=== PATIENT | female | born 1945 | race Caucasian/White ===

== ENCOUNTER 2022-10-27 03:44 | Observation (INO) | payer OTHER ==
[~2022-10-27] VITALS: Ht 162.6 cm; Wt 33.0 kg
[2022-10-27] MEDS ORDERED: MORPHINE 2 MG/ML 1ML VIAL IV PRN ×2 (06:35→13:20)
[2022-10-27 07:13] LABS: BASO # 0.1 10^3/uL (0.0-0.2); BASO % 0.6 % (0.0-1.0); EOS % 0.1 % (0.0-3.0); HEMATOCRIT 36.8 % (36.0-47.0); HEMOGLOBIN 11.8 g/dl (12.0-15.5); LYMPH # 1.1 10^3/uL (1.5-5.0); LYMPH % 11.4 % (24.0-44.0); MEAN CORPUSCULAR HGB CONC 32.1 g/dl (32.0-36.5); MEAN CORPUSCULAR VOLUME 93.6 fl (80.0-96.0); MONO # 1.2 10^3/uL (0.0-0.8); MONO % 12.1 % (2.0-8.0); NEUTROPHILS # 7.3 10^3/uL (1.5-8.5); NEUTROPHILS % 75.5 % (36.0-66.0); PLATELET COUNT, AUTOMATED 200 10^3/uL (150-450); RED BLOOD COUNT 3.93 10^6/uL (4.00-5.40); WHITE BLOOD COUNT 9.7 10^3/uL (4.0-10.0)
[2022-10-27 07:17] LABS: ALBUMIN 3.7 G/DL (3.2-5.2); ALKALINE PHOSPHATASE 104 U/L (46-116); ALT/SGPT 35 U/L (7.0-40); AST/SGOT 55 U/L (<34); BILIRUBIN,DIRECT 0.3 MG/DL (<0.4); BILIRUBIN,TOTAL 1.4 MG/DL (0.3-1.2); BLOOD UREA NITROGEN 17 MG/DL (9-23); CALCIUM LEVEL 9.8 MG/DL (8.3-10.6); CARBON DIOXIDE LEVEL 29 MMOL/L (20-31); CHLORIDE LEVEL 99 MMOL/L (98-107); CREATININE FOR GFR 0.65 MG/DL (0.55-1.30); GLOMERULAR FILTRATION RATE > 60.0 (>39); GLUCOSE, FASTING 105 MG/DL (74-106); SODIUM LEVEL 136 MMOL/L (136-145); TOTAL PROTEIN 6.6 G/DL (5.7-8.2)
[2022-10-27 07:41] LABS: RSV AMPLIFICATION NEGATIVE (NEGATIVE)
[2022-10-27] MEDS: TIOTROPIUM INHALER/CAPSULE (SPIRIVA) INH SCH (08:00)
[2022-10-27] MEDS: DICLOFENAC EPOLAMINE 1.3% PATCH TOP SCH ×2 (09:00→20:17)
[2022-10-27] MEDS: CALCIUM/VITAMIN D 500 MG TAB PO SCH ×2 (09:00→20:16)
[2022-10-27] MEDS: DOCUSATE SODIUM 100MG CAPSULE PO SCH ×2 (09:00→20:16)
[2022-10-27] MEDS: GABAPENTIN 100 MG CAP PO SCH ×2 (09:00→20:16)
[2022-10-27] MEDS ORDERED: VENTAER INH (10:26)
[2022-10-27] MEDS ORDERED: GABA-1171 PO (10:26)
[2022-10-27] MEDS ORDERED: IPRA0.00 NEB (10:26)
[2022-10-27] MEDS ORDERED: BUDE0.5S6 NEB (10:26)
[2022-10-27] MEDS ORDERED: VITA100093 PO (10:26)
[2022-10-27] MEDS ORDERED: SYMB16INH INH (10:26)
[2022-10-27] MEDS ORDERED: CALC600T60 PO (10:26)
[2022-10-27] MEDS ORDERED: ASPI81TA26 PO (10:26)
[2022-10-27] MEDS ORDERED: SIMV10TA21 PO (10:26)
[2022-10-27] MEDS ORDERED: SPIR1CAP INH (10:26)
[2022-10-27] MEDS ORDERED: THERTAB21 PO (10:26)
[2022-10-27] MEDS ORDERED: PROL60SO INJ (10:26)
[2022-10-27] MEDS ORDERED: HOME MED LIST COMPLETE! XX SCH (10:35)
[2022-10-27] MEDS ORDERED: ACETAMINOPHEN TAB 650MG DOSE (2X325MG) PO PRN (12:50)
[2022-10-27] MEDS ORDERED: MOM 30ML SUSPENSION UDC PO PRN (12:50)
[2022-10-27] MEDS ORDERED: IPRATROPIUM 0.5MG/ALBUTEROL 2.5MG INH SOL UD 3ML (DUONEB) NEB PRN (13:15)
[2022-10-27] MEDS ORDERED: ALBUTEROL 90 MCG/ACT 8GM HFA INHALER INH PRN (13:15)
[2022-10-27] MEDS ORDERED: oxyCODONE 5MG TAB PO PRN (13:20)
[2022-10-27 14:51] LABS: ERYTHROCYTE SEDIMENTATION RATE 20 mm/hr (0-30)
[2022-10-27 15:15] VITALS: BP 160/89
[2022-10-27 15:19] LABS: IRON (FE) < 5 UG/DL (50-170); TOTAL IRON BINDING CAPACITY 245 UG/DL (250-425)
[2022-10-27 15:23] LABS: FERRITIN 408.8 NG/ML (7.3-270.7)
[2022-10-27 15:42] LABS: FOLATE > 24.0 NG/ML (>5.4); VITAMIN B12 LEVEL 747 PG/ML (211-911)
[2022-10-27] MEDS: ASPIRIN 81MG ENTERIC TABLET PO SCH (15:42)
[2022-10-27] MEDS: MULTIVITAMINS/MINERALS THERAP 1 TAB PO SCH (15:42)
[2022-10-27] MEDS: SIMVASTATIN 10 MG TAB PO SCH (15:42)
[2022-10-27] MEDS: ACETAMINOPHEN 325 MG TAB PO PRN (15:42)
[2022-10-27] MEDS: LIDOCAINE 5% (LIDODERM) PATCH TD SCH (15:43)
[2022-10-27] MEDS ORDERED: FERRIC CARBOXYMALTOSE INJ 750 MG, VIAL MATE ADAPTER 1 EACH in NS 250 ML IV ONE (20:00)
[2022-10-27] MEDS ORDERED: BUDESONIDE 0.5 MG/2 ML INHALATION SUSPENSION NEB SCH (20:00)
[2022-10-27] MEDS: HEPARIN SOD (PORCINE) 5000UNITS/ML 1ML VIAL/SYRINGE SQ SCH (20:16)
[2022-10-27] MEDS: SYMBICORT 160/4.5MCG INHALER 6GM INH SCH (20:38)
[2022-10-27] MEDS ORDERED: DOCUSATE SODIUM 100MG CAPSULE PO SCH (21:00)
[2022-10-27 21:32] VITALS: BP 107/66
[2022-10-28 05:44] VITALS: BP 148/74
[2022-10-28 06:58] LABS: HEMATOCRIT 30.9 % (36.0-47.0); MEAN CORPUSCULAR HEMOGLOBIN 30.1 pg (27.0-33.0); MEAN CORPUSCULAR HGB CONC 32.4 g/dl (32.0-36.5); MEAN CORPUSCULAR VOLUME 93.1 fl (80.0-96.0); PLATELET COUNT, AUTOMATED 182 10^3/uL (150-450); RED BLOOD COUNT 3.32 10^6/uL (4.00-5.40); WHITE BLOOD COUNT 6.5 10^3/uL (4.0-10.0)
[2022-10-28 07:25] LABS: BLOOD UREA NITROGEN 22 MG/DL (9-23); CALCIUM LEVEL 9.8 MG/DL (8.3-10.6); CARBON DIOXIDE LEVEL 33 MMOL/L (20-31); CHLORIDE LEVEL 100 MMOL/L (98-107); CREATININE FOR GFR 0.58 MG/DL (0.55-1.30); GLOMERULAR FILTRATION RATE > 60.0 (>39); GLUCOSE, FASTING 85 MG/DL (74-106); POTASSIUM SERUM 3.7 MMOL/L (3.5-5.1); SODIUM LEVEL 138 MMOL/L (136-145)
[2022-10-28] MEDS: SYMBICORT 160/4.5MCG INHALER 6GM INH SCH ×2 (07:55→21:17)
[2022-10-28] MEDS: TIOTROPIUM INHALER/CAPSULE (SPIRIVA) INH SCH (07:55)
[2022-10-28] MEDS ORDERED: ENOXAPARIN 30MG/0.3ML SYRINGE (J1650 PER 10MG) SC SCH (09:00)
[2022-10-28] MEDS: DOCUSATE SODIUM 100MG CAPSULE PO SCH ×2 (09:00→20:27)
[2022-10-28] MEDS: HEPARIN SOD (PORCINE) 5000UNITS/ML 1ML VIAL/SYRINGE SQ SCH ×2 (10:03→21:05)
[2022-10-28] MEDS: ACETAMINOPHEN 325 MG TAB PO PRN (10:03)
[2022-10-28] MEDS: MULTIVITAMINS/MINERALS THERAP 1 TAB PO SCH (10:03)
[2022-10-28] MEDS: GABAPENTIN 100 MG CAP PO SCH ×2 (10:04→21:05)
[2022-10-28] MEDS: SIMVASTATIN 10 MG TAB PO SCH (10:04)
[2022-10-28] MEDS: ASPIRIN 81MG ENTERIC TABLET PO SCH (10:04)
[2022-10-28] MEDS: DICLOFENAC EPOLAMINE 1.3% PATCH TOP SCH ×2 (10:04→21:05)
[2022-10-28] MEDS: CALCIUM/VITAMIN D 500 MG TAB PO SCH ×2 (10:04→21:05)
[2022-10-28] MEDS: LIDOCAINE 5% (LIDODERM) PATCH TD SCH (10:05)
[2022-10-28 14:00] VITALS: BP 136/69
[2022-10-28 21:03] VITALS: BP 130/67
[2022-10-29 05:02] VITALS: BP 136/71
[2022-10-29 06:55] LABS: HEMATOCRIT 29.5 % (36.0-47.0); HEMOGLOBIN 9.7 g/dl (12.0-15.5); MEAN CORPUSCULAR HEMOGLOBIN 30.4 pg (27.0-33.0); MEAN CORPUSCULAR HGB CONC 32.9 g/dl (32.0-36.5); MEAN CORPUSCULAR VOLUME 92.5 fl (80.0-96.0); PLATELET COUNT, AUTOMATED 205 10^3/uL (150-450); RED BLOOD COUNT 3.19 10^6/uL (4.00-5.40); WHITE BLOOD COUNT 6.8 10^3/uL (4.0-10.0)
[2022-10-29 07:20] LABS: BLOOD UREA NITROGEN 20 MG/DL (9-23); CALCIUM LEVEL 10.1 MG/DL (8.3-10.6); CARBON DIOXIDE LEVEL 34 MMOL/L (20-31); CHLORIDE LEVEL 102 MMOL/L (98-107); CREATININE FOR GFR 0.53 MG/DL (0.55-1.30); GLOMERULAR FILTRATION RATE > 60.0 (>39); GLUCOSE, FASTING 86 MG/DL (74-106); POTASSIUM SERUM 3.5 MMOL/L (3.5-5.1); SODIUM LEVEL 141 MMOL/L (136-145)
[2022-10-29] MEDS: SYMBICORT 160/4.5MCG INHALER 6GM INH SCH ×2 (07:52→20:45)
[2022-10-29] MEDS: TIOTROPIUM INHALER/CAPSULE (SPIRIVA) INH SCH (07:52)
[2022-10-29] MEDS: DOCUSATE SODIUM 100MG CAPSULE PO SCH ×4 (09:00→19:55)
[2022-10-29] MEDS: DICLOFENAC EPOLAMINE 1.3% PATCH TOP SCH ×3 (09:00→19:51)
[2022-10-29] MEDS: HEPARIN SOD (PORCINE) 5000UNITS/ML 1ML VIAL/SYRINGE SQ SCH ×2 (10:00→19:50)
[2022-10-29] MEDS: LIDOCAINE 5% (LIDODERM) PATCH TD SCH (10:01)
[2022-10-29] MEDS: GABAPENTIN 100 MG CAP PO SCH ×2 (10:01→19:50)
[2022-10-29] MEDS: ASPIRIN 81MG ENTERIC TABLET PO SCH (10:02)
[2022-10-29] MEDS: MULTIVITAMINS/MINERALS THERAP 1 TAB PO SCH (10:02)
[2022-10-29] MEDS: CALCIUM/VITAMIN D 500 MG TAB PO SCH ×2 (10:02→19:50)
[2022-10-29] MEDS: SIMVASTATIN 10 MG TAB PO SCH (10:02)
[2022-10-29] MEDS: ACETAMINOPHEN 325 MG TAB PO PRN (15:18)
[2022-10-30 05:20] VITALS: BP 124/57
[2022-10-30 06:47] LABS: HEMATOCRIT 29.3 % (36.0-47.0); HEMOGLOBIN 9.5 g/dl (12.0-15.5); MEAN CORPUSCULAR HEMOGLOBIN 30.4 pg (27.0-33.0); MEAN CORPUSCULAR HGB CONC 32.4 g/dl (32.0-36.5); MEAN CORPUSCULAR VOLUME 93.6 fl (80.0-96.0); PLATELET COUNT, AUTOMATED 203 10^3/uL (150-450); RED BLOOD COUNT 3.13 10^6/uL (4.00-5.40); WHITE BLOOD COUNT 4.5 10^3/uL (4.0-10.0)
[2022-10-30 07:20] LABS: BLOOD UREA NITROGEN 20 MG/DL (9-23); CALCIUM LEVEL 10.6 MG/DL (8.3-10.6); CARBON DIOXIDE LEVEL 36 MMOL/L (20-31); CHLORIDE LEVEL 104 MMOL/L (98-107); CREATININE FOR GFR 0.58 MG/DL (0.55-1.30); GLOMERULAR FILTRATION RATE > 60.0 (>39); GLUCOSE, FASTING 84 MG/DL (74-106); POTASSIUM SERUM 3.4 MMOL/L (3.5-5.1); SODIUM LEVEL 141 MMOL/L (136-145)
[2022-10-30] MEDS: TIOTROPIUM INHALER/CAPSULE (SPIRIVA) INH SCH (07:21)
[2022-10-30] MEDS: SYMBICORT 160/4.5MCG INHALER 6GM INH SCH ×2 (07:21→20:47)
[2022-10-30] MEDS: CALCIUM/VITAMIN D 500 MG TAB PO SCH ×2 (09:35→20:14)
[2022-10-30] MEDS: GABAPENTIN 100 MG CAP PO SCH ×2 (09:35→20:14)
[2022-10-30] MEDS: ASPIRIN 81MG ENTERIC TABLET PO SCH (09:35)
[2022-10-30] MEDS: SIMVASTATIN 10 MG TAB PO SCH (09:35)
[2022-10-30] MEDS: MULTIVITAMINS/MINERALS THERAP 1 TAB PO SCH (09:35)
[2022-10-30] MEDS: DOCUSATE SODIUM 100MG CAPSULE PO SCH ×2 (09:35→20:14)
[2022-10-30] MEDS: DICLOFENAC EPOLAMINE 1.3% PATCH TOP SCH ×2 (09:36→20:16)
[2022-10-30] MEDS: HEPARIN SOD (PORCINE) 5000UNITS/ML 1ML VIAL/SYRINGE SQ SCH ×2 (09:36→20:16)
[2022-10-30] MEDS: LIDOCAINE 5% (LIDODERM) PATCH TD SCH (09:36)
[2022-10-30] MEDS: ACETAMINOPHEN 325 MG TAB PO PRN (12:29)
[2022-10-30] MEDS: METAMUCIL (PSYLLIUM) PACKET PO SCH (17:13)
[2022-10-30] MEDS: MIRALAX *UNIT DOSE* 17GM PACKET PO SCH (17:13)
[2022-10-31] MEDS: ACETAMINOPHEN 325 MG TAB PO PRN (05:58)
[2022-10-31 06:00] VITALS: BP 134/91
[2022-10-31] MEDS: SODIUM CHLORIDE NASAL 0.65% SPRAY BTL (OCEAN) PRN (06:00)
[2022-10-31 06:48] LABS: HEMATOCRIT 29.4 % (36.0-47.0); HEMOGLOBIN 9.5 g/dl (12.0-15.5); MEAN CORPUSCULAR HEMOGLOBIN 30.5 pg (27.0-33.0); MEAN CORPUSCULAR HGB CONC 32.3 g/dl (32.0-36.5); MEAN CORPUSCULAR VOLUME 94.5 fl (80.0-96.0); PLATELET COUNT, AUTOMATED 213 10^3/uL (150-450); RED BLOOD COUNT 3.11 10^6/uL (4.00-5.40)
[2022-10-31 07:11] LABS: BLOOD UREA NITROGEN 15 MG/DL (9-23); CALCIUM LEVEL 10.4 MG/DL (8.3-10.6); CARBON DIOXIDE LEVEL 37 MMOL/L (20-31); CHLORIDE LEVEL 101 MMOL/L (98-107); CREATININE FOR GFR 0.58 MG/DL (0.55-1.30); GLOMERULAR FILTRATION RATE > 60.0 (>39); GLUCOSE, FASTING 83 MG/DL (74-106); POTASSIUM SERUM 3.4 MMOL/L (3.5-5.1); SODIUM LEVEL 140 MMOL/L (136-145)
[2022-10-31] MEDS: TIOTROPIUM INHALER/CAPSULE (SPIRIVA) INH SCH (07:21)
[2022-10-31] MEDS: SYMBICORT 160/4.5MCG INHALER 6GM INH SCH ×2 (07:21→20:34)
[2022-10-31] MEDS: CALCIUM/VITAMIN D 500 MG TAB PO SCH ×2 (09:16→20:58)
[2022-10-31] MEDS: DOCUSATE SODIUM 100MG CAPSULE PO SCH ×2 (09:16→20:58)
[2022-10-31] MEDS: POTASSIUM CHLORIDE 10MEQ SR TABLET PO SCH ×2 (09:17→20:58)
[2022-10-31] MEDS: SIMVASTATIN 10 MG TAB PO SCH (09:17)
[2022-10-31] MEDS: ASPIRIN 81MG ENTERIC TABLET PO SCH (09:17)
[2022-10-31] MEDS: GABAPENTIN 100 MG CAP PO SCH ×2 (09:17→20:58)
[2022-10-31] MEDS: MIRALAX *UNIT DOSE* 17GM PACKET PO SCH (09:17)
[2022-10-31] MEDS: MULTIVITAMINS/MINERALS THERAP 1 TAB PO SCH (09:17)
[2022-10-31] MEDS: METAMUCIL (PSYLLIUM) PACKET PO SCH (09:17)
[2022-10-31] MEDS: LIDOCAINE 5% (LIDODERM) PATCH TD SCH (09:18)
[2022-10-31] MEDS: HEPARIN SOD (PORCINE) 5000UNITS/ML 1ML VIAL/SYRINGE SQ SCH ×2 (09:18→20:59)
[2022-10-31] MEDS: DICLOFENAC EPOLAMINE 1.3% PATCH TOP SCH ×2 (09:18→20:59)
[2022-10-31 15:40] VITALS: BP 159/84
[2022-10-31] MEDS ORDERED: SALIVA SUBSTITUTE(MOUTHKOTE) BTL MT PRN (16:45)
[2022-10-31 21:10] VITALS: BP 161/85
[2022-10-31] MEDS: ALBUTEROL 90 MCG/ACT 8GM HFA INHALER INH PRN (23:53)
[2022-11-01 06:09] VITALS: BP 122/49
[2022-11-01] MEDS: TIOTROPIUM INHALER/CAPSULE (SPIRIVA) INH SCH (08:15)
[2022-11-01] MEDS: SYMBICORT 160/4.5MCG INHALER 6GM INH SCH ×2 (08:15→21:24)
[2022-11-01] MEDS: METAMUCIL (PSYLLIUM) PACKET PO SCH (09:37)
[2022-11-01] MEDS: MIRALAX *UNIT DOSE* 17GM PACKET PO SCH (09:37)
[2022-11-01] MEDS: ASPIRIN 81MG ENTERIC TABLET PO SCH (09:38)
[2022-11-01] MEDS: CALCIUM/VITAMIN D 500 MG TAB PO SCH ×2 (09:38→21:11)
[2022-11-01] MEDS: HEPARIN SOD (PORCINE) 5000UNITS/ML 1ML VIAL/SYRINGE SQ SCH ×2 (09:38→21:12)
[2022-11-01] MEDS: DOCUSATE SODIUM 100MG CAPSULE PO SCH ×2 (09:38→21:11)
[2022-11-01] MEDS: SIMVASTATIN 10 MG TAB PO SCH (09:38)
[2022-11-01] MEDS: GABAPENTIN 100 MG CAP PO SCH ×2 (09:38→21:11)
[2022-11-01] MEDS: MULTIVITAMINS/MINERALS THERAP 1 TAB PO SCH (09:38)
[2022-11-01] MEDS: SODIUM CHLORIDE NASAL 0.65% SPRAY BTL (OCEAN) PRN (09:38)
[2022-11-01] MEDS: LIDOCAINE 5% (LIDODERM) PATCH TD SCH (09:39)
[2022-11-01] MEDS: DICLOFENAC EPOLAMINE 1.3% PATCH TOP SCH ×2 (09:39→21:00)
[2022-11-01] MEDS: ALBUTEROL 90 MCG/ACT 8GM HFA INHALER INH PRN (21:22)
[2022-11-02 02:11] VITALS: BP 158/72
[2022-11-02] MEDS: ACETAMINOPHEN 325 MG TAB PO PRN (04:14)
[2022-11-02] MEDS: SYMBICORT 160/4.5MCG INHALER 6GM INH SCH ×2 (08:12→21:38)
[2022-11-02] MEDS: TIOTROPIUM INHALER/CAPSULE (SPIRIVA) INH SCH (08:12)
[2022-11-02] MEDS: GABAPENTIN 100 MG CAP PO SCH ×2 (08:41→20:36)
[2022-11-02] MEDS: LIDOCAINE 5% (LIDODERM) PATCH TD SCH (08:42)
[2022-11-02] MEDS: DICLOFENAC EPOLAMINE 1.3% PATCH TOP SCH ×2 (08:42→20:37)
[2022-11-02] MEDS: MULTIVITAMINS/MINERALS THERAP 1 TAB PO SCH (08:42)
[2022-11-02] MEDS: ASPIRIN 81MG ENTERIC TABLET PO SCH (08:42)
[2022-11-02] MEDS: METAMUCIL (PSYLLIUM) PACKET PO SCH (08:42)
[2022-11-02] MEDS: SIMVASTATIN 10 MG TAB PO SCH (08:43)
[2022-11-02] MEDS: DOCUSATE SODIUM 100MG CAPSULE PO SCH ×2 (08:43→20:36)
[2022-11-02] MEDS: HEPARIN SOD (PORCINE) 5000UNITS/ML 1ML VIAL/SYRINGE SQ SCH ×2 (08:43→20:35)
[2022-11-02] MEDS: CALCIUM/VITAMIN D 500 MG TAB PO SCH ×2 (08:43→20:35)
[2022-11-02] MEDS: MIRALAX *UNIT DOSE* 17GM PACKET PO SCH (08:44)
[2022-11-02] MEDS: IBUPROFEN 600MG TAB PO PRN ×2 (08:45→20:36)
[2022-11-02] MEDS ORDERED: PREPARATION H OINTMENT (HEMORRHOID) PR PRN (09:05)
[2022-11-03 07:08] VITALS: BP 125/59
[2022-11-03] MEDS: TIOTROPIUM INHALER/CAPSULE (SPIRIVA) INH SCH (07:57)
[2022-11-03] MEDS: SYMBICORT 160/4.5MCG INHALER 6GM INH SCH ×2 (07:58→20:45)
[2022-11-03] MEDS: MIRALAX *UNIT DOSE* 17GM PACKET PO SCH (09:00)
[2022-11-03] MEDS: METAMUCIL (PSYLLIUM) PACKET PO SCH (09:00)
[2022-11-03] MEDS: HEPARIN SOD (PORCINE) 5000UNITS/ML 1ML VIAL/SYRINGE SQ SCH ×2 (09:24→20:22)
[2022-11-03] MEDS: DICLOFENAC EPOLAMINE 1.3% PATCH TOP SCH ×2 (09:24→20:23)
[2022-11-03] MEDS: CALCIUM/VITAMIN D 500 MG TAB PO SCH ×2 (09:25→20:23)
[2022-11-03] MEDS: GABAPENTIN 100 MG CAP PO SCH ×2 (09:25→20:22)
[2022-11-03] MEDS: LIDOCAINE 5% (LIDODERM) PATCH TD SCH (09:25)
[2022-11-03] MEDS: DOCUSATE SODIUM 100MG CAPSULE PO SCH ×2 (09:26→20:23)
[2022-11-03] MEDS: MULTIVITAMINS/MINERALS THERAP 1 TAB PO SCH (09:26)
[2022-11-03] MEDS: ASPIRIN 81MG ENTERIC TABLET PO SCH (09:27)
[2022-11-03] MEDS: SIMVASTATIN 10 MG TAB PO SCH (09:27)
[2022-11-03] MEDS: IBUPROFEN 600MG TAB PO PRN (20:23)
[2022-11-04 06:00] VITALS: BP 142/63
[2022-11-04] MEDS: TIOTROPIUM INHALER/CAPSULE (SPIRIVA) INH SCH (07:24)
[2022-11-04] MEDS: SYMBICORT 160/4.5MCG INHALER 6GM INH SCH (07:24)
[2022-11-04] MEDS: METAMUCIL (PSYLLIUM) PACKET PO SCH (09:02)
[2022-11-04] MEDS: MIRALAX *UNIT DOSE* 17GM PACKET PO SCH (09:02)
[2022-11-04] MEDS: DICLOFENAC EPOLAMINE 1.3% PATCH TOP SCH (09:03)
[2022-11-04] MEDS: LIDOCAINE 5% (LIDODERM) PATCH TD SCH (09:03)
[2022-11-04] MEDS: GABAPENTIN 100 MG CAP PO SCH (09:04)
[2022-11-04] MEDS: HEPARIN SOD (PORCINE) 5000UNITS/ML 1ML VIAL/SYRINGE SQ SCH (09:04)
[2022-11-04] MEDS: CALCIUM/VITAMIN D 500 MG TAB PO SCH (09:04)
[2022-11-04] MEDS: ASPIRIN 81MG ENTERIC TABLET PO SCH (09:04)
[2022-11-04] MEDS: DOCUSATE SODIUM 100MG CAPSULE PO SCH (09:05)
[2022-11-04] MEDS: SIMVASTATIN 10 MG TAB PO SCH (09:05)
[2022-11-04] MEDS: MULTIVITAMINS/MINERALS THERAP 1 TAB PO SCH (09:05)
[2022-11-04] MEDS ORDERED: META1POW PO (10:54)
[2022-11-04] MEDS ORDERED: LIDO5TD TD (10:54)
[2022-11-04] MEDS ORDERED: COLA100C5 PO (10:54)
[2022-11-04] MEDS ORDERED: MIRA1POW3 PO (10:54)
[2022-11-04] MEDS ORDERED: DICL1PAT6 TOP (10:54)
[2022-11-04] MEDS ORDERED: FERR325T3 PO (10:57)
== END 2022-11-04 15:00 ==
LOC: EDBD 03:44 → M ED 03:44 → INTOOBSV 12:47 → M ED INP 12:47 → M MS5PR 15:24 → INTOOBSV 11-02 09:05 → OBSVTOIN 11-02 09:05
PROVIDERS: ADMIT Student in an Organized Health Care Education/Training Program; ATTEND Internal Medicine
DX: M25.551 Pain in right hip (principal); J96.11 Chronic respiratory failure with hypoxia; Z99.81 Dependence on supplemental oxygen; R63.4 Abnormal weight loss; E43 Unspecified severe protein-calorie malnutrition; D50.9 Iron deficiency anemia, unspecified; K59.00 Constipation, unspecified; M81.0 Age-related osteoporosis without current pathological fracture; Z88.2 Allergy status to sulfonamides; Z79.82 Long term (current) use of aspirin; Z79.899 Other long term (current) drug therapy
CPT/HCPCS: 36415; 71045; 71046; 72195; 73100; 73502; 73700; 80048; 80076; 82607; 82728; 82746; 83550; 84132; 85025; 85027; 85652; 86140; 87631; 87635; 93005; 93041; 94640; 94760; 96361; 96372; 96374; 97110; 97112; 97116; 97161; 97165; 97530; 97535; 99285; G0378; J1439

== ENCOUNTER → 2024-01-03 | Outpatient (REF) | payer OTHER, MEDICARE, MEDICAID ==
[~2024-01-03] MED LIST: ASPI81TA26 PO; BUDE0.5S6 NEB; CALC600T60 PO; COLA100C5 PO; DICL1PAT6 TOP; FERR325T3 PO; GABA-1171 PO; IPRA0.00 NEB; LIDO5TD TD; META1POW PO; MIRA33506 PO; PROL60SO INJ; SIMV10TA21 PO; SPIR1CAP INH; SYMB16INH INH; THERTAB21 PO; VENTAER INH; VITA100093 PO
== END ==
LOC: SKLAB4 11:43
PROVIDERS: ATTEND Internal Medicine
DX: Z53.8 Procedure and treatment not carried out for other reasons (principal)

== ENCOUNTER → 2024-01-03 | Outpatient (REF) | payer OTHER, MEDICARE, MEDICAID ==
[~2024-01-03] MED LIST changes: +ACET-907 PO; +ADV250INH INH; +ALBU2.5V10 INH; +ALPR0.25 PO; +ASPE4PAD TOP; +BACI1CAP PO; +BUDE0.5S6 INH; -BUDE0.5S6 NEB; +HYDR25OI TOP; +LEVO1TAB40 PO; +MIRA3350 PO; +MM S100C PO; +MUCI600T31 PO; +PETR85OI TOP; +PRED10TA2 PO; +PROC2.5C TOP; +TYLE650T38 PO
[2024-01-03 12:42] LABS: BASO % 0.6 % (0.0-1.0); EOS # 0.2 10^3/uL (0.0-0.5); EOS % 2.3 % (0.0-3.0); HEMATOCRIT 34.5 % (36.0-47.0); HEMOGLOBIN 11.1 g/dl (12.0-15.5); LYMPH # 0.6 10^3/uL (1.5-5.0); MEAN CORPUSCULAR HEMOGLOBIN 31.2 pg (27.0-33.0); MEAN CORPUSCULAR HGB CONC 32.2 g/dl (32.0-36.5); MEAN CORPUSCULAR VOLUME 96.9 fl (80.0-96.0); MONO # 0.6 10^3/uL (0.0-0.8); MONO % 8.8 % (2.0-8.0); NEUTROPHILS # 5.1 10^3/uL (1.5-8.5); NEUTROPHILS % 78.5 % (36.0-66.0); PLATELET COUNT, AUTOMATED 225 10^3/uL (150-450); RED BLOOD COUNT 3.56 10^6/uL (4.00-5.40); WHITE BLOOD COUNT 6.5 10^3/uL (4.0-10.0)
[2024-01-03 13:07] LABS: ALBUMIN 3.4 G/DL (3.2-5.2); ALKALINE PHOSPHATASE 83 U/L (46-116); ALT/SGPT 24 U/L (7.0-40); AST/SGOT 19 U/L (<34); BILIRUBIN,TOTAL 0.6 MG/DL (0.3-1.2); BLOOD UREA NITROGEN 24 MG/DL (9-23); CARBON DIOXIDE LEVEL 38 MMOL/L (20-31); CHLORIDE LEVEL 99 MMOL/L (98-107); CREATININE FOR GFR 0.55 MG/DL (0.55-1.30); GLOMERULAR FILTRATION RATE > 60.0 (>39); GLUCOSE, FASTING 87 MG/DL (74-106); POTASSIUM SERUM 4.4 MMOL/L (3.5-5.1); SODIUM LEVEL 138 MMOL/L (136-145); TOTAL PROTEIN 6.1 G/DL (5.7-8.2)
[2024-01-03 13:19] LABS: PROCALCITONIN 0.06 ng/ml
== END ==
LOC: SKLAB4 11:47
PROVIDERS: ATTEND Internal Medicine
DX: J44.9 Chronic obstructive pulmonary disease, unspecified (principal)

== ENCOUNTER → 2024-01-03 | Outpatient (REF) | payer OTHER, MEDICARE, MEDICAID | LOC: SKLAB4 14:49 | PROVIDERS: ATTEND Internal Medicine | DX: J44.9 Chronic obstructive pulmonary disease, unspecified (principal) ==

== ENCOUNTER 2024-01-12 10:03 | Inpatient (IN) | payer MEDICARE, MEDICAID ==
[~2024-01-12] VITALS: Ht 152.4 cm; Wt 35.2 kg
[~2024-01-12 10:03] MED LIST changes: -ACET-907 PO; -ADV250INH INH; -ALBU2.5V10 INH; -ALPR0.25 PO; -ASPE4PAD TOP; -BACI1CAP PO; -HYDR25OI TOP; -LEVO1TAB40 PO; -MIRA3350 PO; -MM S100C PO; -MUCI600T31 PO; -PETR85OI TOP; -PRED10TA2 PO; -PROC2.5C TOP; -TYLE650T38 PO
[2024-01-12] MEDS: IPRATROPIUM 0.5MG/ALBUTEROL 2.5MG INH SOL UD 3ML (DUONEB) NEB PRN (10:25)
[2024-01-12 10:29] LABS: ABG BASE EXCESS 4.1 (-2.0-2.0); ABG HCO3 31.3 MMOL/L (22.0-26.0); ABG PARTIAL PRESSURE CO2 59.4 mmHg (35.0-45.0); ABG PARTIAL PRESSURE O2 177.7 mmHg (75.0-100.0); ABG STANDARD HCO3 28.2 MMOL/L. (22.0-26.0); ABG TOTAL CO2 33.1 MMOL/L (23.0-31.0); ABG pH (ARTERIAL) 7.339 UNITS (7.350-7.450)
[2024-01-12 10:38] LABS: BASO % 0.2 % (0.0-1.0); EOS # 0.2 10^3/uL (0.0-0.5); EOS % 1.4 % (0.0-3.0); HEMATOCRIT 33.4 % (36.0-47.0); LYMPH # 0.2 10^3/uL (1.5-5.0); LYMPH % 1.4 % (24.0-44.0); MEAN CORPUSCULAR HEMOGLOBIN 32.1 pg (27.0-33.0); MEAN CORPUSCULAR HGB CONC 32.9 g/dl (32.0-36.5); MEAN CORPUSCULAR VOLUME 97.4 fl (80.0-96.0); MONO # 0.6 10^3/uL (0.0-0.8); MONO % 4.5 % (2.0-8.0); NEUTROPHILS # 12.8 10^3/uL (1.5-8.5); NEUTROPHILS % 91.4 % (36.0-66.0); PLATELET COUNT, AUTOMATED 171 10^3/uL (150-450); RED BLOOD COUNT 3.43 10^6/uL (4.00-5.40)
[2024-01-12 10:50] LABS: INR 0.93; PROTHROMBIN TIME 12.2 SECONDS (12.5-14.5)
[2024-01-12] MEDS: methylPREDNISolone 125MG 2ML VIAL IV ONE (10:57)
[2024-01-12 11:01] LABS: ALBUMIN 3.3 G/DL (3.2-5.2); ALKALINE PHOSPHATASE 132 U/L (46-116); ALT/SGPT 39 U/L (7.0-40); AST/SGOT 42 U/L (<34); BILIRUBIN,DIRECT 0.2 MG/DL (<0.4); BILIRUBIN,TOTAL 0.6 MG/DL (0.3-1.2); BLOOD UREA NITROGEN 17 MG/DL (9-23); CALCIUM LEVEL 10.2 MG/DL (8.3-10.6); CARBON DIOXIDE LEVEL 33 MMOL/L (20-31); CHLORIDE LEVEL 101 MMOL/L (98-107); CREATININE FOR GFR 0.49 MG/DL (0.55-1.30); GLOMERULAR FILTRATION RATE > 60.0 (>39); GLUCOSE, FASTING 141 MG/DL (74-106); POTASSIUM SERUM 4.5 MMOL/L (3.5-5.1); SODIUM LEVEL 138 MMOL/L (136-145); TOTAL PROTEIN 6.2 G/DL (5.7-8.2)
[2024-01-12 11:03] LABS: THYROID STIMULATING HORMONE 1.043 uIU/ML (0.55-4.78)
[2024-01-12] MEDS ORDERED: HYDR25OI TOP (11:15)
[2024-01-12] MEDS ORDERED: MIRA3350 PO (11:15)
[2024-01-12] MEDS ORDERED: BACI1CAP PO (11:15)
[2024-01-12] MEDS ORDERED: TYLE650T38 PO (11:15)
[2024-01-12] MEDS ORDERED: ACET-907 PO (11:15)
[2024-01-12] MEDS ORDERED: ASPE4PAD TOP (11:15)
[2024-01-12] MEDS ORDERED: LEVO1TAB40 PO (11:15)
[2024-01-12] MEDS ORDERED: MUCI600T31 PO (11:15)
[2024-01-12] MEDS ORDERED: PETR85OI TOP (11:15)
[2024-01-12] MEDS ORDERED: MM S100C PO (11:15)
[2024-01-12] MEDS ORDERED: ALBU2.5V10 INH (11:19)
[2024-01-12] MEDS ORDERED: ALPR0.25 PO (11:19)
[2024-01-12] MEDS ORDERED: ADV250INH INH (11:22)
[2024-01-12] MEDS ORDERED: HOME MED LIST COMPLETE! XX SCH (11:25)
[2024-01-12] MEDS ORDERED: ISOVUE-370 76% 100ML VIAL As Ordered ONE (12:30)
[2024-01-12] MEDS ORDERED: PROC2.5C TOP (13:41)
[2024-01-12 14:23] VITALS: BP 132/63; TEMP 98.8; O2SAT 94
[2024-01-12] MEDS: BUDESONIDE 0.5 MG/2 ML INHALATION SUSPENSION INH SCH (14:51)
[2024-01-12] MEDS: ALPRAZolam 0.25 MG TAB PO PRN (15:34)
[2024-01-12] MEDS: ANUSOL HC CREAM 30GM TOP SCH (15:46)
[2024-01-12] MEDS: IPRATROPIUM 0.5MG/ALBUTEROL 2.5MG INH SOL UD 3ML (DUONEB) NEB SCH (19:45)
[2024-01-12 20:13] VITALS: BP 125/60; TEMP 98.6; O2SAT 96
[2024-01-12] MEDS: DOCUSATE SODIUM 100MG CAPSULE PO SCH (20:46)
[2024-01-12] MEDS: ACETAMINOPHEN 650MG ER TAB (TYLENOL ARTHRITIS) PO SCH (20:46)
[2024-01-12] MEDS: guaiFENesin ER TABLET 600 MG TAB PO SCH (20:46)
[2024-01-12] MEDS: GABAPENTIN 100 MG CAP PO SCH (20:46)
[2024-01-13 04:00] VITALS: BP 122/65; TEMP 98.6; O2SAT 94
[2024-01-13] MEDS: TIOTROPIUM INHALER/CAPSULE (SPIRIVA) INH SCH (07:33)
[2024-01-13] MEDS: MIRALAX *UNIT DOSE* 17GM PACKET PO SCH (08:10)
[2024-01-13 09:26] LABS: HEMATOCRIT 33.8 % (36.0-47.0); HEMOGLOBIN 10.8 g/dl (12.0-15.5); MEAN CORPUSCULAR HEMOGLOBIN 31.7 pg (27.0-33.0); MEAN CORPUSCULAR VOLUME 99.1 fl (80.0-96.0); PLATELET COUNT, AUTOMATED 205 10^3/uL (150-450); RED BLOOD COUNT 3.41 10^6/uL (4.00-5.40); WHITE BLOOD COUNT 11.6 10^3/uL (4.0-10.0)
[2024-01-13 09:53] LABS: BLOOD UREA NITROGEN 21 MG/DL (9-23); CALCIUM LEVEL 10.2 MG/DL (8.3-10.6); CARBON DIOXIDE LEVEL 36 MMOL/L (20-31); CHLORIDE LEVEL 96 MMOL/L (98-107); CREATININE FOR GFR 0.57 MG/DL (0.55-1.30); GLOMERULAR FILTRATION RATE > 60.0 (>39); GLUCOSE, FASTING 147 MG/DL (74-106); SODIUM LEVEL 134 MMOL/L (136-145)
[2024-01-13 12:00] VITALS: BP 113/48; TEMP 98.6; O2SAT 100
[2024-01-13] MEDS: IPRATROPIUM 0.5MG/ALBUTEROL 2.5MG INH SOL UD 3ML (DUONEB) NEB PRN (17:34)
[2024-01-13 19:43] VITALS: BP 131/68; TEMP 98.1; O2SAT 100
[2024-01-13] MEDS: LevoFLOXacin 750 MG TABLET PO SCH (20:22)
[2024-01-14 04:36] VITALS: BP 129/68; TEMP 97.9; O2SAT 100
[2024-01-14] MEDS ORDERED: MIRALAX *UNIT DOSE* 17GM PACKET PO PRN (08:00)
[2024-01-14] MEDS ORDERED: BISACODYL 5MG TAB PO PRN (08:00)
[2024-01-14] MEDS ORDERED: MOM 30ML SUSPENSION UDC PO PRN (08:00)
[2024-01-14] MEDS ORDERED: FLEET ENEMA PR PRN (08:00)
[2024-01-14] MEDS: SENOKOT S TAB PO PRN (08:11)
[2024-01-14] MEDS: methylPREDNISolone 40MG 1ML VIAL IV SCH (08:58)
[2024-01-14 09:11] LABS: HEMATOCRIT 36.1 % (36.0-47.0); HEMOGLOBIN 11.4 g/dl (12.0-15.5); MEAN CORPUSCULAR HEMOGLOBIN 31.7 pg (27.0-33.0); MEAN CORPUSCULAR HGB CONC 31.6 g/dl (32.0-36.5); MEAN CORPUSCULAR VOLUME 100.3 fl (80.0-96.0); PLATELET COUNT, AUTOMATED 199 10^3/uL (150-450); WHITE BLOOD COUNT 10.6 10^3/uL (4.0-10.0)
[2024-01-14 09:44] LABS: BLOOD UREA NITROGEN 17 MG/DL (9-23); CALCIUM LEVEL 10.6 MG/DL (8.3-10.6); CARBON DIOXIDE LEVEL 38 MMOL/L (20-31); CHLORIDE LEVEL 101 MMOL/L (98-107); CREATININE FOR GFR 0.56 MG/DL (0.55-1.30); GLOMERULAR FILTRATION RATE > 60.0 (>39); GLUCOSE, FASTING 105 MG/DL (74-106); POTASSIUM SERUM 4.1 MMOL/L (3.5-5.1); SODIUM LEVEL 141 MMOL/L (136-145)
[2024-01-14 12:00] VITALS: BP 129/66; TEMP 98.1; O2SAT 97
[2024-01-14] MEDS: ALPRAZolam 0.25 MG TAB PO ONE (14:32)
[2024-01-14 19:40] VITALS: BP 141/73; TEMP 98.1; O2SAT 98
[2024-01-15 03:00] VITALS: BP 147/87; TEMP 97.9; O2SAT 92
[2024-01-15] MEDS ORDERED: ALPRAZolam 0.5 MG TAB PO ONE (09:45)
[2024-01-15 11:50] VITALS: O2SAT 86
[2024-01-15 11:55] VITALS: O2SAT 90
[2024-01-15] MEDS: methylPREDNISolone 40MG 1ML VIAL IV SCH (11:57)
[2024-01-15 12:00] VITALS: BP 148/81; TEMP 97.9; O2SAT 89
[2024-01-15] MEDS ORDERED: IPRATROPIUM 0.02% SOLN 0.5MG 2.5ML NEB INH PRN (15:50)
[2024-01-15] MEDS ORDERED: LEVALBUTEROL 1.25MG 0.5ML CONCENTRATE NEB INH PRN (15:55)
[2024-01-15] MEDS: IPRATROPIUM 0.02% SOLN 0.5MG 2.5ML NEB INH SCH (16:50)
[2024-01-15] MEDS: LEVALBUTEROL 1.25MG 0.5ML CONCENTRATE NEB INH SCH (16:50)
[2024-01-15 16:51] LABS: THYROID STIMULATING HORMONE 0.154 uIU/ML (0.55-4.78)
[2024-01-15 16:52] LABS: FREE T3 1.7 PG/ML (2.3-4.2)
[2024-01-15] MEDS: FUROSEMIDE 20MG/2ML VIAL IV ONE (16:57)
[2024-01-15 20:00] VITALS: BP 128/68; TEMP 97.9; O2SAT 96
[2024-01-15] MEDS: ALPRAZolam 0.25 MG TAB PO PRN (22:00)
[2024-01-16 06:00] VITALS: BP 147/77; TEMP 97.7; O2SAT 98
[2024-01-16 12:00] VITALS: BP 146/76; TEMP 98.1; O2SAT 98
[2024-01-16] MEDS: predniSONE 20 MG TAB PO SCH (12:32)
[2024-01-16 20:00] VITALS: BP 141/76; TEMP 97.9; O2SAT 98
[2024-01-17 04:00] VITALS: BP 155/75; TEMP 97.9; O2SAT 98
[2024-01-17 08:05] LABS: BASO % 0.3 % (0.0-1.0); EOS # 0.1 10^3/uL (0.0-0.5); EOS % 1.8 % (0.0-3.0); HEMATOCRIT 34.2 % (36.0-47.0); LYMPH % 14.2 % (24.0-44.0); MEAN CORPUSCULAR HEMOGLOBIN 31.8 pg (27.0-33.0); MEAN CORPUSCULAR HGB CONC 32.2 g/dl (32.0-36.5); MEAN CORPUSCULAR VOLUME 98.8 fl (80.0-96.0); MONO # 0.7 10^3/uL (0.0-0.8); MONO % 8.9 % (2.0-8.0); NEUTROPHILS # 5.4 10^3/uL (1.5-8.5); NEUTROPHILS % 74.1 % (36.0-66.0); PLATELET COUNT, AUTOMATED 223 10^3/uL (150-450); RED BLOOD COUNT 3.46 10^6/uL (4.00-5.40); WHITE BLOOD COUNT 7.3 10^3/uL (4.0-10.0)
[2024-01-17 08:36] LABS: BLOOD UREA NITROGEN 22 MG/DL (9-23); CALCIUM LEVEL 10.5 MG/DL (8.3-10.6); CARBON DIOXIDE LEVEL 38 MMOL/L (20-31); CHLORIDE LEVEL 102 MMOL/L (98-107); CREATININE FOR GFR 0.48 MG/DL (0.55-1.30); GLOMERULAR FILTRATION RATE > 60.0 (>39); GLUCOSE, FASTING 78 MG/DL (74-106); MAGNESIUM LEVEL 2.1 MG/DL (1.8-2.4); POTASSIUM SERUM 4.5 MMOL/L (3.5-5.1); SODIUM LEVEL 141 MMOL/L (136-145)
[2024-01-17] MEDS ORDERED: PRED10TA2 PO (10:49)
[2024-01-17 12:00] VITALS: BP 124/58; TEMP 97.9; O2SAT 94
== END 2024-01-17 13:22 | DRG 190 ==
LOC: M ED 10:03 → EDBD 10:03 → M ED INP 13:16 → M MSPAV 14:24
PROVIDERS: ADMIT General Practice; ATTEND Internal Medicine
PROC: B246ZZZ Ultrasonography of Right and Left Heart (ICD-10-PCS; principal; 2024-01-12)
DX: J44.1 Chronic obstructive pulmonary disease with (acute) exacerbation (principal); E43 Unspecified severe protein-calorie malnutrition; J96.11 Chronic respiratory failure with hypoxia; Z68.1 Body mass index [BMI] 19.9 or less, adult; R64 Cachexia; I50.32 Chronic diastolic (congestive) heart failure; J43.9 Emphysema, unspecified; R91.1 Solitary pulmonary nodule; G62.9 Polyneuropathy, unspecified; J32.3 Chronic sphenoidal sinusitis; M79.641 Pain in right hand; M81.0 Age-related osteoporosis without current pathological fracture; K59.09 Other constipation; R13.10 Dysphagia, unspecified; E78.5 Hyperlipidemia, unspecified; Z66 Do not resuscitate; G89.29 Other chronic pain; Z99.81 Dependence on supplemental oxygen; Z87.891 Personal history of nicotine dependence; Z79.899 Other long term (current) drug therapy; Z88.2 Allergy status to sulfonamides

== ENCOUNTER → 2024-01-19 | Outpatient (REF) | payer MEDICAID, MEDICARE ==
[~2024-01-19] MED LIST changes: +ACET-907 PO; +ADV250INH INH; +ALBU2.5V10 INH; +ALPR0.25 PO; +ASPE4PAD TOP; +BACI1CAP PO; +HYDR25OI TOP; +LEVO1TAB40 PO; +MIRA3350 PO; +MM S100C PO; +MUCI600T31 PO; +PETR85OI TOP; +PRED10TA2 PO; +PROC2.5C TOP; +TYLE650T38 PO
[2024-01-19 07:39] LABS: FERRITIN 539.3 NG/ML (7.3-270.7)
== END ==
LOC: SKLAB4 08:44
PROVIDERS: ATTEND Internal Medicine
DX: D64.9 Anemia, unspecified (principal)

== ENCOUNTER → 2024-01-24 | Outpatient (REF) | payer MEDICAID, MEDICARE | LOC: SKLAB2 10:13 | PROVIDERS: ATTEND Internal Medicine | DX: Z53.8 Procedure and treatment not carried out for other reasons (principal) ==

== ENCOUNTER 2024-02-08 15:18 | Inpatient (IN) | payer MEDICARE, MEDICAID ==
[~2024-02-08] VITALS: Ht 162.6 cm; Wt 33.3 kg
[~2024-02-08 15:18] MED LIST changes: -ACET1TAB55 PO; -MILKSUS3 PO
[2024-02-08] MEDS: ACETAMINOPHEN 325 MG TAB PO ONE (16:01)
[2024-02-08 16:02] LABS: VENOUS BASE EXCESS 5.5 (-2.0-2.0); VENOUS HCO3 33.1 MMOL/L (23.0-27.0); VENOUS O2 SATURATION 69.8 % (60.0-80.0); VENOUS PARTIAL PRESSURE CO2 63.1 mmHg (38.0-50.0); VENOUS PH 7.338 UNITS (7.330-7.430); VENOUS STANDARD HCO3 28.7 MMOL/L; VENOUS TOTAL CO2 35.1 MMOL/L (24.0-28.0)
[2024-02-08 16:05] LABS: BASO % 0.2 % (0.0-1.0); EOS # 0.1 10^3/uL (0.0-0.5); EOS % 0.7 % (0.0-3.0); HEMATOCRIT 36.6 % (36.0-47.0); HEMOGLOBIN 11.7 g/dl (12.0-15.5); LYMPH # 0.3 10^3/uL (1.5-5.0); LYMPH % 3.2 % (24.0-44.0); MEAN CORPUSCULAR HEMOGLOBIN 31.3 pg (27.0-33.0); MEAN CORPUSCULAR VOLUME 97.9 fl (80.0-96.0); MONO # 0.7 10^3/uL (0.0-0.8); NEUTROPHILS # 8.3 10^3/uL (1.5-8.5); NEUTROPHILS % 88.4 % (36.0-66.0); PLATELET COUNT, AUTOMATED 179 10^3/uL (150-450); RED BLOOD COUNT 3.74 10^6/uL (4.00-5.40); WHITE BLOOD COUNT 9.4 10^3/uL (4.0-10.0)
[2024-02-08] MEDS: IPRATROPIUM 0.5MG/ALBUTEROL 2.5MG INH SOL UD 3ML (DUONEB) NEB PRN (16:22)
[2024-02-08 16:29] LABS: ALBUMIN 3.9 G/DL (3.2-5.2); ALKALINE PHOSPHATASE 113 U/L (46-116); ALT/SGPT 20 U/L (7.0-40); AST/SGOT 18 U/L (<34); BILIRUBIN,DIRECT 0.2 MG/DL (<0.4); BILIRUBIN,TOTAL 0.8 MG/DL (0.3-1.2); BLOOD UREA NITROGEN 17 MG/DL (9-23); CALCIUM LEVEL 11.1 MG/DL (8.3-10.6); CARBON DIOXIDE LEVEL 34 MMOL/L (20-31); CHLORIDE LEVEL 100 MMOL/L (98-107); GLOMERULAR FILTRATION RATE > 60.0 (>39); GLUCOSE, FASTING 121 MG/DL (74-106); POTASSIUM SERUM 4.3 MMOL/L (3.5-5.1); SODIUM LEVEL 136 MMOL/L (136-145); TOTAL PROTEIN 6.9 G/DL (5.7-8.2)
[2024-02-08 16:31] LABS: THYROID STIMULATING HORMONE 0.561 uIU/ML (0.55-4.78)
[2024-02-08] MEDS ORDERED: ISOVUE-370 76% 100ML VIAL As Ordered ONE (17:46)
[2024-02-08] MEDS: NS IV ONE (18:51)
[2024-02-08] MEDS: cefTRIAXone SOD 2 GM in D5W MINI-BAG PLUS 50 ML IV ONE (18:58)
[2024-02-08] MEDS ORDERED: ACET1TAB55 PO ×2 (19:46)
[2024-02-08] MEDS ORDERED: MILKSUS3 PO (19:46)
[2024-02-08] MEDS ORDERED: COLA100C5 PO (19:46)
[2024-02-08] MEDS ORDERED: HOME MED LIST COMPLETE! XX SCH (19:50)
[2024-02-08] MEDS ORDERED: ACETAMINOPHEN TAB 650MG DOSE (2X325MG) PO PRN (19:50)
[2024-02-08] MEDS: ALBUTEROL 90 MCG/ACT 8GM HFA INHALER INH SCH (20:00)
[2024-02-08] MEDS: NS 1,000 ML IV ONE (20:45)
[2024-02-08] MEDS ORDERED: MOM 30ML SUSPENSION UDC PO PRN (20:55)
[2024-02-08] MEDS: IPRATROPIUM 0.5MG/ALBUTEROL 2.5MG INH SOL UD 3ML (DUONEB) INH SCH (21:09)
[2024-02-08] MEDS: DOCUSATE SODIUM 100MG CAPSULE PO SCH (21:19)
[2024-02-08] MEDS: guaiFENesin ER TABLET 600 MG TAB PO SCH (21:19)
[2024-02-08] MEDS: AZITHROMYCIN 250MG TABLET PO SCH (21:19)
[2024-02-08] MEDS: GABAPENTIN 100 MG CAP PO SCH (21:19)
[2024-02-08] MEDS: ALPRAZolam 0.25 MG TAB PO PRN (21:19)
[2024-02-08] MEDS: BENZONATATE 100MG CAPSULE PO SCH (21:20)
[2024-02-08 23:55] VITALS: BP 106/57; TEMP 100.6; O2SAT 97
[2024-02-09] VITALS (21 sets, daily range): BP systolic 108–152; BP diastolic 56–77; TEMP 97.6–100.1; O2SAT 82–98
[2024-02-09 01:00] LABS: ABG BASE EXCESS 0.8 (-2.0-2.0); ABG HCO3 26.6 MMOL/L (22.0-26.0); ABG O2 SATURATION 94.6 % (95.0-99.0); ABG PARTIAL PRESSURE CO2 47.6 mmHg (35.0-45.0); ABG PARTIAL PRESSURE O2 74.6 mmHg (75.0-100.0); ABG STANDARD HCO3 25.1 MMOL/L. (22.0-26.0); ABG TOTAL CO2 28.1 MMOL/L (23.0-31.0); ABG pH (ARTERIAL) 7.365 UNITS (7.350-7.450)
[2024-02-09 06:12] LABS: HEMATOCRIT 34.1 % (36.0-47.0); HEMOGLOBIN 10.9 g/dl (12.0-15.5); MEAN CORPUSCULAR HEMOGLOBIN 31.8 pg (27.0-33.0); MEAN CORPUSCULAR VOLUME 99.4 fl (80.0-96.0); PLATELET COUNT, AUTOMATED 168 10^3/uL (150-450); RED BLOOD COUNT 3.43 10^6/uL (4.00-5.40); WHITE BLOOD COUNT 8.2 10^3/uL (4.0-10.0)
[2024-02-09 06:47] LABS: BLOOD UREA NITROGEN 17 MG/DL (9-23); CALCIUM LEVEL 9.9 MG/DL (8.3-10.6); CARBON DIOXIDE LEVEL 31 MMOL/L (20-31); CHLORIDE LEVEL 103 MMOL/L (98-107); CREATININE FOR GFR 0.61 MG/DL (0.55-1.30); GLOMERULAR FILTRATION RATE > 60.0 (>39); GLUCOSE, FASTING 106 MG/DL (74-106); POTASSIUM SERUM 4.4 MMOL/L (3.5-5.1); SODIUM LEVEL 139 MMOL/L (136-145)
[2024-02-09] MEDS ORDERED: TIOTROPIUM INHALER/CAPSULE (SPIRIVA) INH SCH (08:00)
[2024-02-09] MEDS: TIOTROPIUM INHALER/CAPSULE (SPIRIVA) INH SCH (08:00)
[2024-02-09] MEDS: ADVAIR HFA 115/21MCG INHALER INH SCH (08:34)
[2024-02-09] MEDS: BUDESONIDE 0.5 MG/2 ML INHALATION SUSPENSION INH SCH (08:34)
[2024-02-09] MEDS: NS 1,000 ML IV SCH (11:47)
[2024-02-09] MEDS: methylPREDNISolone 125MG 2ML VIAL IV ONE (11:53)
[2024-02-09] MEDS ORDERED: ALBUTEROL SULFATE 2.5MG/0.5ML INH NEB SOLN NEB PRN (12:45)
[2024-02-09] MEDS ORDERED: LEVALBUTEROL 1.25MG 0.5ML CONCENTRATE NEB NEB PRN (13:00)
[2024-02-09 13:06] LABS: ABG BASE EXCESS 3.1 (-2.0-2.0); ABG HCO3 27.8 MMOL/L (22.0-26.0); ABG O2 SATURATION 96.6 % (95.0-99.0); ABG PARTIAL PRESSURE CO2 43.3 mmHg (35.0-45.0); ABG PARTIAL PRESSURE O2 83.6 mmHg (75.0-100.0); ABG STANDARD HCO3 27.2 MMOL/L. (22.0-26.0); ABG TOTAL CO2 29.2 MMOL/L (23.0-31.0); ABG pH (ARTERIAL) 7.426 UNITS (7.350-7.450)
[2024-02-09] MEDS ORDERED: DOXYCYCLINE HYCLATE 100 MG in D5W MINI-BAG PLUS 100 ML IV SCH (14:00)
[2024-02-09] MEDS: LevoFLOXacin IV 750 MG in IV 1 EA IV SCH (14:18)
[2024-02-09] MEDS: LEVALBUTEROL 1.25MG 0.5ML CONCENTRATE NEB NEB SCH (15:08)
[2024-02-09] MEDS: IPRATROPIUM 0.02% SOLN 0.5MG 2.5ML NEB NEB SCH (15:08)
[2024-02-09] MEDS: methylPREDNISolone 40MG 1ML VIAL IV SCH (17:23)
[2024-02-09] MEDS ORDERED: cefTRIAXone SOD 1 GM in D5W MINI-BAG PLUS 50 ML IV SCH (18:00)
[2024-02-09] MEDS: PANTOPRAZOLE 40MG VIAL IV SCH (21:12)
[2024-02-09] MEDS: HEPARIN SOD (PORCINE) 5000UNITS/ML 1ML VIAL/SYRINGE SQ SCH (21:12)
[2024-02-09] MEDS: QUEtiapine FUMARATE 12.5 MG HALF-TAB PO ONE (22:22)
[2024-02-10] VITALS (30 sets, daily range): BP systolic 138–164; BP diastolic 64–106; TEMP 97–98; O2SAT 80–100
[2024-02-10] MEDS ORDERED: methylPREDNISolone 40MG 1ML VIAL IV SCH
[2024-02-10] MEDS: ACETAMINOPHEN 650MG SUPP PR PRN (00:12)
[2024-02-10 06:07] LABS: HEMATOCRIT 32.5 % (36.0-47.0); HEMOGLOBIN 10.2 g/dl (12.0-15.5); MEAN CORPUSCULAR HEMOGLOBIN 30.9 pg (27.0-33.0); MEAN CORPUSCULAR HGB CONC 31.4 g/dl (32.0-36.5); MEAN CORPUSCULAR VOLUME 98.5 fl (80.0-96.0); PLATELET COUNT, AUTOMATED 172 10^3/uL (150-450); WHITE BLOOD COUNT 10.2 10^3/uL (4.0-10.0)
[2024-02-10 06:35] LABS: BLOOD UREA NITROGEN 20 MG/DL (9-23); CALCIUM LEVEL 9.6 MG/DL (8.3-10.6); CARBON DIOXIDE LEVEL 26 MMOL/L (20-31); CHLORIDE LEVEL 108 MMOL/L (98-107); GLOMERULAR FILTRATION RATE > 60.0 (>39); GLUCOSE, FASTING 127 MG/DL (74-106); POTASSIUM SERUM 4.2 MMOL/L (3.5-5.1); SODIUM LEVEL 141 MMOL/L (136-145)
[2024-02-10] MEDS: FUROSEMIDE 40MG/4ML VIAL IV SCH (08:57)
[2024-02-10] MEDS: amLODIPine 5 MG TAB PO ONE (23:22)
[2024-02-11 03:07] VITALS: BP 174/81; TEMP 96.8; O2SAT 95
[2024-02-11] MEDS: QUEtiapine FUMARATE 12.5 MG HALF-TAB PO ONE (03:24)
[2024-02-11 06:14] LABS: HEMATOCRIT 31.3 % (36.0-47.0); HEMOGLOBIN 10.3 g/dl (12.0-15.5); MEAN CORPUSCULAR HGB CONC 32.9 g/dl (32.0-36.5); MEAN CORPUSCULAR VOLUME 94.3 fl (80.0-96.0); PLATELET COUNT, AUTOMATED 215 10^3/uL (150-450); RED BLOOD COUNT 3.32 10^6/uL (4.00-5.40); WHITE BLOOD COUNT 9.5 10^3/uL (4.0-10.0)
[2024-02-11] MEDS: LevoFLOXacin 750 MG TABLET PO SCH (06:39)
[2024-02-11 06:42] LABS: BLOOD UREA NITROGEN 26 MG/DL (9-23); CALCIUM LEVEL 9.7 MG/DL (8.3-10.6); CARBON DIOXIDE LEVEL 29 MMOL/L (20-31); CHLORIDE LEVEL 105 MMOL/L (98-107); CREATININE FOR GFR 0.46 MG/DL (0.55-1.30); GLOMERULAR FILTRATION RATE > 60.0 (>39); GLUCOSE, FASTING 138 MG/DL (74-106); POTASSIUM SERUM 3.5 MMOL/L (3.5-5.1); SODIUM LEVEL 141 MMOL/L (136-145)
[2024-02-11 07:13] VITALS: BP 135/84; TEMP 97.5; O2SAT 99
[2024-02-11] MEDS: amLODIPine 5 MG TAB PO SCH (08:37)
[2024-02-11] MEDS ORDERED: FUROSEMIDE 20MG/2ML VIAL IV SCH (09:00)
[2024-02-11 11:18] VITALS: BP 150/68; TEMP 97.6; O2SAT 100
[2024-02-11 12:00] VITALS: BP 144/63; TEMP 99.6; O2SAT 97
[2024-02-11 19:35] VITALS: BP 148/71; TEMP 98; O2SAT 94
[2024-02-11] MEDS: ALPRAZolam 0.25 MG TAB PO ONE (21:16)
[2024-02-12 03:02] VITALS: BP 149/75; TEMP 97.9; O2SAT 96
[2024-02-12 07:00] VITALS: BP 165/86; TEMP 98.4; O2SAT 98
[2024-02-12 07:09] VITALS: BP 161/78; TEMP 98.1; O2SAT 93
[2024-02-12 07:28] LABS: HEMATOCRIT 31.4 % (36.0-47.0); HEMOGLOBIN 10.6 g/dl (12.0-15.5); MEAN CORPUSCULAR HEMOGLOBIN 31.7 pg (27.0-33.0); MEAN CORPUSCULAR HGB CONC 33.8 g/dl (32.0-36.5); PLATELET COUNT, AUTOMATED 237 10^3/uL (150-450); RED BLOOD COUNT 3.34 10^6/uL (4.00-5.40); WHITE BLOOD COUNT 8.1 10^3/uL (4.0-10.0)
[2024-02-12] MEDS ORDERED: PILL CUTTER 1 EACH XX PRN (07:45)
[2024-02-12 07:54] LABS: BLOOD UREA NITROGEN 22 MG/DL (9-23); CALCIUM LEVEL 9.8 MG/DL (8.3-10.6); CARBON DIOXIDE LEVEL 34 MMOL/L (20-31); CHLORIDE LEVEL 102 MMOL/L (98-107); CREATININE FOR GFR 0.45 MG/DL (0.55-1.30); GLOMERULAR FILTRATION RATE > 60.0 (>39); GLUCOSE, FASTING 134 MG/DL (74-106); POTASSIUM SERUM 3.4 MMOL/L (3.5-5.1); SODIUM LEVEL 141 MMOL/L (136-145)
[2024-02-12] MEDS: FUROSEMIDE 20 MG TAB PO SCH (08:29)
[2024-02-12] MEDS: ACETAMINOPHEN TAB 650MG DOSE (2X325MG) PO PRN (09:35)
[2024-02-12 12:00] VITALS: BP 152/77; TEMP 98.4; O2SAT 99
[2024-02-12] MEDS: POTASSIUM CHLORIDE 10% LIQ 20MEQ/15ML UDC PO ONE (13:04)
[2024-02-12] MEDS: GABAPENTIN 100 MG CAP PO SCH (13:05)
[2024-02-12 16:25] VITALS: BP 151/98; TEMP 97.7; O2SAT 98
[2024-02-12 20:00] VITALS: BP 141/83; TEMP 97.5; O2SAT 94
[2024-02-12] MEDS: methylPREDNISolone 40MG 1ML VIAL IV SCH (21:01)
[2024-02-13] VITALS (11 sets, daily range): BP systolic 122–146; BP diastolic 72–81; TEMP 97.2–97.7; O2SAT 76–100
[2024-02-13 07:50] LABS: HEMATOCRIT 35.2 % (36.0-47.0); HEMOGLOBIN 11.5 g/dl (12.0-15.5); MEAN CORPUSCULAR HEMOGLOBIN 31.3 pg (27.0-33.0); MEAN CORPUSCULAR HGB CONC 32.7 g/dl (32.0-36.5); MEAN CORPUSCULAR VOLUME 95.7 fl (80.0-96.0); PLATELET COUNT, AUTOMATED 257 10^3/uL (150-450); RED BLOOD COUNT 3.68 10^6/uL (4.00-5.40)
[2024-02-13 08:16] LABS: BLOOD UREA NITROGEN 31 MG/DL (9-23); CALCIUM LEVEL 10.4 MG/DL (8.3-10.6); CARBON DIOXIDE LEVEL 36 MMOL/L (20-31); CHLORIDE LEVEL 100 MMOL/L (98-107); CREATININE FOR GFR 0.56 MG/DL (0.55-1.30); GLOMERULAR FILTRATION RATE > 60.0 (>39); GLUCOSE, FASTING 139 MG/DL (74-106); POTASSIUM SERUM 4.9 MMOL/L (3.5-5.1); SODIUM LEVEL 139 MMOL/L (136-145)
[2024-02-13] MEDS ORDERED: VARIBAR PUDDING 40% w/v 230ML TUBE As Ordered ONE (11:09)
[2024-02-13] MEDS ORDERED: VARIBAR NECTAR 40% w/v 240ML SUSP BTL As Ordered ONE (11:09)
[2024-02-13] MEDS ORDERED: BARIUM SULFATE 700 MG TABLET (E-Z-DISK) As Ordered ONE (11:10)
[2024-02-13] MEDS ORDERED: E-Z-PAQUE 96% w/w SUSP 176GM BTL As Ordered ONE (11:10)
[2024-02-13 12:17] LABS: PROCALCITONIN 0.67 ng/ml
[2024-02-14 03:57] VITALS: BP 135/73; TEMP 97.5; O2SAT 100
[2024-02-14 07:14] LABS: HEMATOCRIT 38.7 % (36.0-47.0); MEAN CORPUSCULAR HEMOGLOBIN 30.2 pg (27.0-33.0); MEAN CORPUSCULAR VOLUME 97.5 fl (80.0-96.0); PLATELET COUNT, AUTOMATED 277 10^3/uL (150-450); RED BLOOD COUNT 3.97 10^6/uL (4.00-5.40); WHITE BLOOD COUNT 14.3 10^3/uL (4.0-10.0)
[2024-02-14 07:33] VITALS: O2SAT 100
[2024-02-14 07:43] LABS: ALBUMIN 3.2 G/DL (3.2-5.2); ALKALINE PHOSPHATASE 82 U/L (46-116); ALT/SGPT 23 U/L (7.0-40); AST/SGOT 19 U/L (<34); BILIRUBIN,TOTAL 0.5 MG/DL (0.3-1.2); BLOOD UREA NITROGEN 27 MG/DL (9-23); CALCIUM LEVEL 11.4 MG/DL (8.3-10.6); CARBON DIOXIDE LEVEL 40 MMOL/L (20-31); CHLORIDE LEVEL 97 MMOL/L (98-107); CREATININE FOR GFR 0.59 MG/DL (0.55-1.30); GLOMERULAR FILTRATION RATE > 60.0 (>39); GLUCOSE, FASTING 79 MG/DL (74-106); POTASSIUM SERUM 4.2 MMOL/L (3.5-5.1); SODIUM LEVEL 139 MMOL/L (136-145)
[2024-02-14] MEDS: predniSONE 20 MG TAB PO SCH (08:48)
[2024-02-14 12:00] VITALS: BP 133/65; TEMP 97.7; O2SAT 98
[2024-02-14 19:48] VITALS: O2SAT 95; O2SAT 96
[2024-02-14 20:10] VITALS: BP 134/66; TEMP 97.9; O2SAT 100
[2024-02-14] MEDS: PANTOPRAZOLE 40MG TAB (PROTONIX) PO ONE (21:29)
[2024-02-15 03:53] VITALS: BP 154/80; TEMP 98.1; O2SAT 97
[2024-02-15 07:12] LABS: HEMOGLOBIN 11.6 g/dl (12.0-15.5); MEAN CORPUSCULAR HEMOGLOBIN 31.5 pg (27.0-33.0); MEAN CORPUSCULAR HGB CONC 32.2 g/dl (32.0-36.5); MEAN CORPUSCULAR VOLUME 97.8 fl (80.0-96.0); PLATELET COUNT, AUTOMATED 265 10^3/uL (150-450); RED BLOOD COUNT 3.68 10^6/uL (4.00-5.40); WHITE BLOOD COUNT 13.2 10^3/uL (4.0-10.0)
[2024-02-15 07:51] LABS: ATYPICAL LYMPH 1 % (0-5); BLOOD UREA NITROGEN 24 MG/DL (9-23); CALCIUM LEVEL 11.2 MG/DL (8.3-10.6); CARBON DIOXIDE LEVEL > 40.0 MMOL/L (20-31); CHLORIDE LEVEL 96 MMOL/L (98-107); CREATININE FOR GFR 0.87 MG/DL (0.55-1.30); EOSINOPHILS 2 % (0-3); GLOMERULAR FILTRATION RATE > 60.0 (>39); GLUCOSE, FASTING 79 MG/DL (74-106); LYMPHOCYTES 6 % (16-44); MAGNESIUM LEVEL 1.9 MG/DL (1.8-2.4); MONOCYTES 8 % (0-5); MYELOCYTES 4 % (0-0); NEUTROPHILS 79 % (28-66); SODIUM LEVEL 140 MMOL/L (136-145)
[2024-02-15 07:52] LABS: ANISOCYTOSIS 1+; PLATELET ESTIMATE NORMAL (NORMAL)
[2024-02-15] MEDS: MIRALAX *UNIT DOSE* 17GM PACKET PO SCH (09:00)
[2024-02-15] MEDS: predniSONE 20 MG TAB PO SCH (09:18)
[2024-02-15] MEDS: PANTOPRAZOLE 40MG TAB (PROTONIX) PO SCH (09:18)
[2024-02-15 12:00] VITALS: BP 126/65; TEMP 98.1; O2SAT 89
[2024-02-15] MEDS: acetaZOLAMIDE 250MG TAB PO SCH (16:13)
[2024-02-15 19:48] VITALS: BP 128/64; TEMP 98.2; O2SAT 87
[2024-02-15] MEDS: DOCUSATE SODIUM 100MG CAPSULE PO SCH (20:18)
[2024-02-16 03:46] VITALS: BP 124/66; TEMP 97.9; O2SAT 95
[2024-02-16] MEDS ORDERED: LIDOCAINE 5% (LIDODERM) PATCH TD PRN (06:30)
[2024-02-16 07:02] LABS: BASO # 0.1 10^3/uL (0.0-0.2); BASO % 0.6 % (0.0-1.0); EOS % 0.3 % (0.0-3.0); HEMATOCRIT 35.3 % (36.0-47.0); HEMOGLOBIN 11.2 g/dl (12.0-15.5); LYMPH # 1.3 10^3/uL (1.5-5.0); LYMPH % 10.1 % (24.0-44.0); MEAN CORPUSCULAR HGB CONC 31.7 g/dl (32.0-36.5); MEAN CORPUSCULAR VOLUME 97.8 fl (80.0-96.0); MONO # 0.8 10^3/uL (0.0-0.8); MONO % 6.5 % (2.0-8.0); NEUTROPHILS # 9.5 10^3/uL (1.5-8.5); NEUTROPHILS % 73.5 % (36.0-66.0); PLATELET COUNT, AUTOMATED 306 10^3/uL (150-450); RED BLOOD COUNT 3.61 10^6/uL (4.00-5.40)
[2024-02-16 07:33] LABS: BLOOD UREA NITROGEN 25 MG/DL (9-23); CALCIUM LEVEL 11.3 MG/DL (8.3-10.6); CARBON DIOXIDE LEVEL 40 MMOL/L (20-31); CHLORIDE LEVEL 100 MMOL/L (98-107); CREATININE FOR GFR 0.72 MG/DL (0.55-1.30); GLOMERULAR FILTRATION RATE > 60.0 (>39); GLUCOSE, FASTING 79 MG/DL (74-106); POTASSIUM SERUM 3.8 MMOL/L (3.5-5.1); SODIUM LEVEL 141 MMOL/L (136-145)
[2024-02-16] MEDS ORDERED: PRED10TA2 PO (07:34)
[2024-02-16] MEDS ORDERED: LEVO1TAB40 PO (07:34)
[2024-02-16 08:26] VITALS: BP 119/65
[2024-02-16] MEDS ORDERED: ACET250T18 PO (08:29)
== END 2024-02-16 09:16 | DRG 871 ==
LOC: M ED 15:18 → EDBD 15:18 → M ED INP 19:48 → M MSPAV 23:39 → M PCU 02-09 14:32 → M MSPAV 02-12 16:15
PROVIDERS: ADMIT Internal Medicine; ATTEND Student in an Organized Health Care Education/Training Program
DX: A41.9 Sepsis, unspecified organism (principal); J96.21 Acute and chronic respiratory failure with hypoxia; J69.0 Pneumonitis due to inhalation of food and vomit; E43 Unspecified severe protein-calorie malnutrition; I50.33 Acute on chronic diastolic (congestive) heart failure; J44.1 Chronic obstructive pulmonary disease with (acute) exacerbation; J44.0 Chronic obstructive pulmonary disease with (acute) lower respiratory infection; Z68.1 Body mass index [BMI] 19.9 or less, adult; J98.11 Atelectasis; R64 Cachexia; E87.3 Alkalosis; M81.0 Age-related osteoporosis without current pathological fracture; J43.9 Emphysema, unspecified; G89.29 Other chronic pain; G57.93 Unspecified mononeuropathy of bilateral lower limbs; R53.1 Weakness; Z99.81 Dependence on supplemental oxygen; E78.5 Hyperlipidemia, unspecified; Z87.891 Personal history of nicotine dependence; Z66 Do not resuscitate; Z79.899 Other long term (current) drug therapy; Z88.2 Allergy status to sulfonamides

== ENCOUNTER → 2024-02-08 | Outpatient (REF) ==
[~2024-02-08] MED LIST changes: +ACET1TAB55 PO; +MILKSUS3 PO
== END ==
LOC: SKLAB4 11:51
PROVIDERS: ATTEND Internal Medicine
DX: R09.81 Nasal congestion (principal)

== ENCOUNTER → 2024-02-17 | Outpatient (REF) ==
[~2024-02-17] MED LIST changes: +ACET1TAB55 PO; +ACET250T18 PO; +MILKSUS3 PO
[2024-02-21 09:32] LABS: BASO # 0.1 10^3/uL (0.0-0.2); BASO % 0.4 % (0.0-1.0); EOS # 0.1 10^3/uL (0.0-0.5); EOS % 0.4 % (0.0-3.0); HEMATOCRIT 36.1 % (36.0-47.0); HEMOGLOBIN 11.5 g/dl (12.0-15.5); LYMPH # 0.8 10^3/uL (1.5-5.0); LYMPH % 3.6 % (24.0-44.0); MEAN CORPUSCULAR HEMOGLOBIN 31.3 pg (27.0-33.0); MEAN CORPUSCULAR HGB CONC 31.9 g/dl (32.0-36.5); MEAN CORPUSCULAR VOLUME 98.4 fl (80.0-96.0); MONO # 0.4 10^3/uL (0.0-0.8); NEUTROPHILS # 18.7 10^3/uL (1.5-8.5); NEUTROPHILS % 87.8 % (36.0-66.0); PLATELET COUNT, AUTOMATED 338 10^3/uL (150-450); RED BLOOD COUNT 3.67 10^6/uL (4.00-5.40); WHITE BLOOD COUNT 21.3 10^3/uL (4.0-10.0)
[2024-02-21 09:43] LABS: ALKALINE PHOSPHATASE 81 U/L (46-116); ALT/SGPT 23 U/L (7.0-40); AST/SGOT 14 U/L (<34); BILIRUBIN,TOTAL 0.6 MG/DL (0.3-1.2); BLOOD UREA NITROGEN 30 MG/DL (9-23); CALCIUM LEVEL 11.5 MG/DL (8.3-10.6); CARBON DIOXIDE LEVEL 40 MMOL/L (20-31); CHLORIDE LEVEL 101 MMOL/L (98-107); CREATININE FOR GFR 0.74 MG/DL (0.55-1.30); GLOMERULAR FILTRATION RATE > 60.0 (>39); GLUCOSE, FASTING 91 MG/DL (74-106); POTASSIUM SERUM 3.8 MMOL/L (3.5-5.1); SODIUM LEVEL 141 MMOL/L (136-145); TOTAL PROTEIN 5.9 G/DL (5.7-8.2)
[2024-02-21 09:53] LABS: VENOUS PARTIAL PRESSURE CO2 83.7 mmHg (38.0-50.0); VENOUS PARTIAL PRESSURE O2 47.1 mmHg (30.0-50.0); VENOUS PH 7.328 UNITS (7.330-7.430)
[2024-02-21 09:54] LABS: VENOUS BASE EXCESS 13.4 (-2.0-2.0); VENOUS HCO3 42.9 MMOL/L (23.0-27.0); VENOUS O2 SATURATION 83.8 % (60.0-80.0); VENOUS STANDARD HCO3 36.9 MMOL/L; VENOUS TOTAL CO2 45.5 MMOL/L (24.0-28.0)
== END ==
LOC: SKLAB4 08:00
PROVIDERS: ATTEND Internal Medicine
DX: J44.1 Chronic obstructive pulmonary disease with (acute) exacerbation (principal)

== ENCOUNTER → 2024-02-18 | Outpatient (REF) ==
[2024-02-18 10:36] LABS: VENOUS HCO3 36.2 MMOL/L (23.0-27.0); VENOUS O2 SATURATION 75.7 % (60.0-80.0); VENOUS PARTIAL PRESSURE CO2 71.1 mmHg (38.0-50.0); VENOUS PARTIAL PRESSURE O2 41.3 mmHg (30.0-50.0); VENOUS PH 7.325 UNITS (7.330-7.430); VENOUS STANDARD HCO3 31.3 MMOL/L; VENOUS TOTAL CO2 38.4 MMOL/L (24.0-28.0)
== END ==
LOC: SKLAB4 07:00
PROVIDERS: ATTEND Internal Medicine
DX: J44.9 Chronic obstructive pulmonary disease, unspecified (principal)

== ENCOUNTER → 2024-02-19 | Outpatient (REF) ==
[2024-02-19 11:52] LABS: BASO % 0.3 % (0.0-1.0); EOS % 0.3 % (0.0-3.0); HEMATOCRIT 32.8 % (36.0-47.0); HEMOGLOBIN 10.4 g/dl (12.0-15.5); LYMPH # 0.8 10^3/uL (1.5-5.0); LYMPH % 5.4 % (24.0-44.0); MEAN CORPUSCULAR HEMOGLOBIN 31.2 pg (27.0-33.0); MEAN CORPUSCULAR HGB CONC 31.7 g/dl (32.0-36.5); MEAN CORPUSCULAR VOLUME 98.5 fl (80.0-96.0); MONO # 0.8 10^3/uL (0.0-0.8); NEUTROPHILS # 13.3 10^3/uL (1.5-8.5); NEUTROPHILS % 85.5 % (36.0-66.0); PLATELET COUNT, AUTOMATED 314 10^3/uL (150-450); RED BLOOD COUNT 3.33 10^6/uL (4.00-5.40); WHITE BLOOD COUNT 15.5 10^3/uL (4.0-10.0)
[2024-02-19 12:12] LABS: BLOOD UREA NITROGEN 38 MG/DL (9-23); CALCIUM LEVEL 11.4 MG/DL (8.3-10.6); CARBON DIOXIDE LEVEL 33 MMOL/L (20-31); CHLORIDE LEVEL 105 MMOL/L (98-107); CREATININE FOR GFR 0.83 MG/DL (0.55-1.30); GLOMERULAR FILTRATION RATE > 60.0 (>39); GLUCOSE, FASTING 94 MG/DL (74-106); POTASSIUM SERUM 3.5 MMOL/L (3.5-5.1); SODIUM LEVEL 141 MMOL/L (136-145)
== END ==
LOC: SKLAB4 07:00
PROVIDERS: ATTEND Internal Medicine
DX: Z51.89 Encounter for other specified aftercare (principal)

== ENCOUNTER → 2024-03-10 | Outpatient (REF) | payer OTHER, MEDICAID ==
[2024-03-10 22:05] LABS: APPEARANCE, URINE HAZY (CLEAR); BACTERIA, URINE AUTO 2+ (NEGATIVE); BILIRUBIN, URINE AUTO NEGATIVE (NEGATIVE); BLOOD, URINE BLOOD 1+ (NEGATIVE); COLOR, URINE YELLOW (YELLOW); GLUCOSE, URINE (UA) AUTO NEGATIVE (NEGATIVE); KETONE, URINE AUTO NEGATIVE (NEGATIVE); LEUKOCYTE ESTERASE, URINE AUTO TRACE (NEGATIVE); MUCUS, URINE SMALL (NEGATIVE); NITRITE, URINE AUTO NEGATIVE (NEGATIVE); PROTEIN, URINE AUTO NEGATIVE (NEGATIVE); RBC, URINE AUTO 2 /HPF (0-3); SPECIFIC GRAVITY URINE AUTO 1.019 (1.002-1.035); SQUAMOUS EPITHELIAL CELL UR AU 0 /HPF (0-6); WBC, URINE AUTO 6 /HPF (0-3)
== END ==
LOC: SKLAB4 21:41
PROVIDERS: ATTEND Internal Medicine
DX: R30.0 Dysuria (principal)